=== PATIENT | female | born 1990 | race Caucasian/White ===

== ENCOUNTER 2020-09-01 17:58 | Emergency (ER) | payer BC ==
[~2020-09-01] VITALS: Ht 172.7 cm; Wt 154.5 kg
[~2020-09-01 17:58] MED LIST: BACTRIM DS 8001 TAB PO; NORCO 325 MG-51 TAB PO; PROZAC 20MG20 MG PO
[2020-09-01 18:02] VITALS: TEMP 97.5
[2020-09-01] MEDS ORDERED: PREDNISONE20 MG PO (18:41)
[2020-09-01 19:14] VITALS: BP 137/747; PULSE 85
== END 2020-09-01 19:15 | disposition home or self-care (01) ==
LOC: COL.ER 17:58
DX: M65.841 Other synovitis and tenosynovitis, right hand (principal); Z88.2 Allergy status to sulfonamides; Z88.1 Allergy status to other antibiotic agents; Z87.891 Personal history of nicotine dependence

== ENCOUNTER 2021-04-15 10:28 | Emergency (ER) | payer BC ==
[~2021-04-15] VITALS: Ht 172.7 cm; Wt 159.1 kg
[~2021-04-15 10:28] MED LIST changes: +PREDNISONE20 MG PO
[2021-04-15 10:44] VITALS: TEMP 97.6
[2021-04-15] MEDS ORDERED: NORCO 325 MG-51 TAB PO (11:52)
[2021-04-15] MEDS ORDERED: MEDROL 4MG DOSPA4 MG PO (11:52)
[2021-04-15 12:04] VITALS: BP 128/65; PULSE 89
== END 2021-04-15 12:04 | disposition home or self-care (01) ==
LOC: COL.ER 10:28
DX: M54.42 Lumbago with sciatica, left side (principal); Z87.891 Personal history of nicotine dependence

== ENCOUNTER 2021-10-13 11:29 | Emergency (ER) | payer BC ==
[~2021-10-13] VITALS: Ht 172.7 cm; Wt 159.1 kg
[~2021-10-13 11:29] MED LIST changes: +MEDROL 4MG DOSPA4 MG PO
[2021-10-13 12:01] VITALS: BP 142/95; TEMP 97.9
[2021-10-13] MEDS ORDERED: FLEXERIL 1010 MG/TAB PO (14:22)
[2021-10-13 14:48] VITALS: PULSE 82
== END 2021-10-13 14:48 | disposition home or self-care (01) ==
LOC: COL.ER 11:29
DX: M54.50 Low back pain, unspecified (principal)
CPT/HCPCS: J1885; J2360